=== PATIENT | male | born 1975 | race Caucasian/White ===

== ENCOUNTER 2020-11-24 17:30 | Day surgery (SDCO) | payer OTHER ==
[~2020-11-24] VITALS: Ht 182.9 cm; Wt 88.6 kg
[2020-11-24 18:53] LABS: BASOPHIL 0.2 % (0-2); EOSINOPHIL 1.3 % (0-5); HCT 44.4 % (42.0-52.0); HGB 15.2 g/dl (13.2-18.0); LYMPHOCYTE 23.3 % (15-48); MCH 29.7 pg (25.0-31.0); MCHC 34.2 g/dL (32.0-36.0); MCV 86.9 fL (78.0-100.0); MONOCYTE 11.1 % (0-12); NEUTROPHIL 63.4 % (41-80); NRBC 0; PLT 218 K/uL (150-400); RBC 5.11 M/uL (4.70-6.00); RDW 11.6 % (11.5-14.0)
[2020-11-24 19:01] LABS: ALBUMIN 3.6 g/dL (3.4-5.0); ALKALINE PHOSHATASE 80 U/L (46-116); ALT 72 U/L (16-63); AST 49 U/L (15-37); BILIRUBIN - TOTAL 0.5 mg/dL (0.2-1.0); BUN 13 mg/dL (7-18); BUN/CREAT RATIO (CALC) 15.3 RATIO; CHLORIDE 104 mmol/L (98-107); CO2 (BICARBONATE) 26 mmol/L (21-32); CREATININE 0.85 mg/dL (0.67-1.17); GLOBULIN (CALCULATION) 4.1 g/dL; GLUCOSE 121 mg/dL (74-106); MAGNESIUM 2.3 mg/dL (1.8-2.4); POTASSIUM 4.2 mmol/L (3.5-5.1); TOTAL PROTEIN 7.7 g/dL (6.4-8.2)
[2020-11-24 19:02] LABS: ACETAMINOPHEN (TYLENOL) < 2.0 ug/mL (10.0-30.0)
[2020-11-25 07:16] LABS: BASOPHIL 0.2 % (0-2); EOSINOPHIL 2.3 % (0-5); HCT 41.4 % (42.0-52.0); HGB 13.8 g/dl (13.2-18.0); LYMPHOCYTE 37.7 % (15-48); MCH 29.7 pg (25.0-31.0); MCHC 33.3 g/dL (32.0-36.0); MCV 89.2 fL (78.0-100.0); MONOCYTE 14.2 % (0-12); MPV 9.4 fL (6.0-9.5); NEUTROPHIL 45.2 % (41-80); NRBC 0; PLT 175 K/uL (150-400); RBC 4.64 M/uL (4.70-6.00); RDW 11.7 % (11.5-14.0); WBC 4.9 K/uL (4.0-10.5)
[2020-11-25 07:55] LABS: ALKALINE PHOSHATASE 68 U/L (46-116); ALT 58 U/L (16-63); AST 40 U/L (15-37); BILIRUBIN - TOTAL 0.3 mg/dL (0.2-1.0); BUN 10 mg/dL (7-18); BUN/CREAT RATIO (CALC) 11.9 RATIO; C-REACTIVE PROTEIN < 0.20 mg/dL (<=0.90); CHLORIDE 108 mmol/L (98-107); CO2 (BICARBONATE) 30 mmol/L (21-32); CREATININE 0.84 mg/dL (0.67-1.17); GLOBULIN (CALCULATION) 3.7 g/dL; GLUCOSE 92 mg/dL (74-106); LDH 209 U/L (85-227); POTASSIUM 4.3 mmol/L (3.5-5.1); TOTAL PROTEIN 6.7 g/dL (6.4-8.2)
[2020-11-25 07:56] LABS: INR 1.12 (0.9-1.2); PROTHROMBIN TIME 13.8 SECONDS (11.8-13.4); PTT 28.3 SECONDS (24.4-34.7)
[2020-11-25] MEDS ORDERED: ATENOLOL25 MG PO (10:25)
[2020-11-25 10:52] LABS: BILIRUBIN NEGATIVE (NEGATIVE); BLOOD NEGATIVE Ery/uL (NEGATIVE); CLARITY CLEAR (CLEAR); COLOR YELLOW (YELLOW); GLUCOSE (U) NORMAL (NORMAL); LEUKOCYTES NEGATIVE Leu/uL (NEGATIVE); NITRITE NEGATIVE (NEGATIVE); PROTEIN NEGATIVE (NEGATIVE); SPECIFIC GRAVITY 1.015 (1.001-1.030); pH 6.5 (5.0-9.0)
[2020-11-25 10:55] LABS: AMPHETAMINES POSITIVE (NEGATIVE); BARBITURATES NEGATIVE (NEGATIVE); ECSTASY (MDMA) NEGATIVE (NEGATIVE); MARIJUANA (THC) NEGATIVE (NEGATIVE); METHADONE NEGATIVE (NEGATIVE); OPIATES NEGATIVE (NEGATIVE); OXYCODONE NEGATIVE (NEGATIVE)
--- NOTE | 2020-11-25 14:16 | NUR ---
THIS NURSE WAS AT THE DESK OBSERVING MY TELE STRIPS AT 1050 WHEN AN OFFICER CAME TO DESK AND ASKED TO SEE MR. SCHNEIDER, I INSTRUCTED OFFICER THAT PATIENT WAS IN 211. THIS NURSE WAS THEN CALLED AWAY FROM THE DESK FOR ANOTHER PATIENT, WHEN I WAS IN THE OTHER PATIENTS ROOM, THE AIDE CAME AND ASKED ME IF I HAD DISCHARGED THIS PATIENT, I INFORMED HER THAT I HAD NOT COMPLETED THE DISCHARGE ORDERS THAT WERE JUST PUT IN. SHE THEN INFORMED ME THAT THE PATIENT WAS NO LONGER IN ROOM. THIS NURSE QUESTIONED IF ANYONE HAD SEEN HIM LEAVE, WHICH NO ONE HAD BUT HAD HEARD THE ALARM ON THE BACK DOOR. THIS NURSE CALLED GIS PROFESSOR TO INFORM HER THAT HE HAD LEFT DOWN THE BACK STAIRCASE WITH HIS IV STILL IN HIS ARM. POLICE WERE NOTIFIED TO LOCATE THE PATIENT.
--- NOTE | 2020-11-25 15:43 | NUR ---
11/25/20 Patient left AMA
== END 2020-11-25 11:10 | disposition left against medical advice (07) ==
LOC: FER 17:30 → FMS 23:09
PROVIDERS: Emergency Medicine; Nurse Practitioner; ADMIT Internal Medicine
DX: T43.624A Poisoning by amphetamines, undetermined, initial encounter (principal); R41.0 Disorientation, unspecified; U07.1 COVID-19; K72.90 Hepatic failure, unspecified without coma; R00.0 Tachycardia, unspecified; Z86.19 Personal history of other infectious and parasitic diseases
CPT/HCPCS: 36415; 71045; 74018; 80053; 80305; 81003; 82728; 83615; 83735; 84145; 84484; 85025; 85610; 85730; 86140; 93005; 96372; C9399; G0378; G0480; J2060; J7030; J7050; J8540; U0002

== ENCOUNTER 2020-11-25 12:14 | Emergency (ER) | payer OTHER ==
[~2020-11-25 12:14] MED LIST: ATENOLOL25 MG PO
[2020-11-25 13:15] LABS: BASOPHIL 0.2 % (0-2); EOSINOPHIL 1.6 % (0-5); HCT 41.5 % (42.0-52.0); HGB 14.1 g/dl (13.2-18.0); LYMPHOCYTE 21.9 % (15-48); MCH 29.9 pg (25.0-31.0); MCV 87.9 fL (78.0-100.0); MPV 9.8 fL (6.0-9.5); NEUTROPHIL 67.8 % (41-80); NRBC 0; PLT 207 K/uL (150-400); RBC 4.72 M/uL (4.70-6.00); RDW 11.7 % (11.5-14.0); WBC 5.8 K/uL (4.0-10.5)
[2020-11-25 13:34] LABS: AMPHETAMINES POSITIVE (NEGATIVE); BARBITURATES NEGATIVE (NEGATIVE); ECSTASY (MDMA) NEGATIVE (NEGATIVE); MARIJUANA (THC) NEGATIVE (NEGATIVE); METHADONE NEGATIVE (NEGATIVE); OPIATES NEGATIVE (NEGATIVE)
[2020-11-25 13:35] LABS: ACETAMINOPHEN (TYLENOL) < 2.0 ug/mL (10.0-30.0); ALBUMIN 3.2 g/dL (3.4-5.0); ALKALINE PHOSHATASE 75 U/L (46-116); ALT 60 U/L (16-63); AST 39 U/L (15-37); BILIRUBIN - TOTAL 0.4 mg/dL (0.2-1.0); BUN 9 mg/dL (7-18); CHLORIDE 106 mmol/L (98-107); CO2 (BICARBONATE) 25 mmol/L (21-32); CREATININE 0.75 mg/dL (0.67-1.17); GLOBULIN (CALCULATION) 3.7 g/dL; GLUCOSE 133 mg/dL (74-106); POTASSIUM 4.2 mmol/L (3.5-5.1); TOTAL PROTEIN 6.9 g/dL (6.4-8.2)
[2020-11-25 13:35] LABS: OXYCODONE NEGATIVE (NEGATIVE)
== END 2020-11-25 14:27 | disposition home or self-care (01) ==
LOC: FER 12:14
PROVIDERS: Internal Medicine
DX: R07.89 Other chest pain (principal); U07.1 COVID-19; I10 Essential (primary) hypertension; F17.210 Nicotine dependence, cigarettes, uncomplicated
CPT/HCPCS: 36415; 71045; 80053; 80305; 84484; 85025; G0480